=== PATIENT | female | born 2000 | race Two or more races ===

== ENCOUNTER 2023-03-03 16:48 | Emergency (ER) | payer MEDICAID ==
[~2023-03-03] VITALS: Ht 157.5 cm; Wt 86.2 kg
[2023-03-03 17:31] LABS: URINE HCG NEGATIVE (NEG)
[2023-03-03 17:46] LABS: BILIRUBIN,URINE NEGATIVE (Neg); CLARITY,URINE CLEAR (Clear); COLOR,URINE YELLOW (Yellow); GLUCOSE, URINE NEGATIVE (Neg); KETONES,URINE NEGATIVE (Neg); LEUKOCYTE ESTERASE ,URINE NEGATIVE (Neg); NITRITES, URINE NEGATIVE (Neg); OCCULT BLOOD,URINE SMALL (Neg); PROTEIN,URINE TRACE mg/dl (Neg); UROBILINOGEN,URINE 0.2 E.U/dL (0.2-1.0)
[2023-03-03 17:48] LABS: UA COLLECTION TYPE CLN CATCH MIDSTREAM
[2023-03-03 17:49] LABS: BACTERIA,URINE NONE SEEN /HPF (Neg); RBC,URINE 0-2 /HPF (0-2); SQUAMOUS EPITHELIAL CELL,UR FEW /LPF (FEW); WBC,URINE 0-4 /HPF (0-4)
[2023-03-03 18:23] LABS: ALANINE AMINOTRANSFERASE 27 U/L (12-78); ALBUMIN/GLOBULIN RATIO 0.7 (1.1-1.5); ALKALINE PHOSPHATASE 56 IU/L (46-116); ANION GAP 9 (8-16); ASPARTATE AMINO TRANSFERASE 19 U/L (10-37); BILIRUBIN,TOTAL 0.7 MG/DL (0.1-1.0); BLOOD UREA NITROGEN 10 MG/DL (7-18); BUN/CREATININE RATIO 12.2 (10.0-20.0); CALCIUM 10.1 MG/DL (8.5-10.1); CHLORIDE 103 MMOL/L (99-107); CREATININE 0.82 MG/DL (0.40-0.90); GLUCOSE 82 MG/DL (70-104); POTASSIUM 3.7 MMOL/L (3.5-5.1); SODIUM 137 MMOL/L (135-145); TOTAL CARBON DIOXIDE 25.1 MMOL/L (24-32); TOTAL PROTEIN 9.5 G/DL (6.4-8.2); eCRCL 86 ML/MIN; eGFR 88 ML/MIN
[2023-03-03 18:37] LABS: BASOPHILS # (AUTO) 0.1 X10'3 (0-0.2); EOSINOPHILS # (AUTO) 0.1 X10'3 (0-0.9); EOSINOPHILS % (AUTO) 0.8 % (0-6); HEMATOCRIT 45.4 % (35.0-45.0); HEMOGLOBIN 14.4 g/dl (12.0-16.0); LYMPHOCYTES # (AUTO) 2.1 X10'3 (1.1-4.8); LYMPHOCYTES % (AUTO) 29.8 % (21-51); MEAN CORPUSCULAR HEMOGLOBIN 22.5 PG (27.0-31.0); MEAN CORPUSCULAR HGB CONC 31.7 g/dL (33.0-36.5); MEAN CORPUSCULAR VOLUME 71.1 FL (78-98); MEAN PLATELET VOLUME 10.3 FL (7.4-10.4); MONOCYTES # (AUTO) 0.6 X10'3 (0-0.9); MONOCYTES % (AUTO) 8.3 % (2-12); NEUTROPHILS # (AUTO) 4.2 X10'3 (1.8-7.7); NEUTROPHILS % (AUTO) 59.1 % (42-75); PLATELET COUNT 284 X10'3 (140-440); RED BLOOD COUNT 6.38 X10'6 (4.20-5.60); RED CELL DISTRIBUTION WIDTH 16.4 % (11.5-14.5); WHITE BLOOD COUNT 7.2 X10'3 (4.5-11.0)
[2023-03-03 21:06] VITALS: BP 133/94; PULSE 98; TEMP 98.6; O2SAT 100
--- NOTE | 2023-03-03 21:13 | NUR ---
PCOS: GETS PERIOD EVERY OTHER MONTH HAD IT A FEW DAYS AGO. HER PERIOD LENGTHS VARY. THIS LAST ONE WAS 1 WEEK. LBM: THIS MORNING. SHE HAS BMS REGULARLY. YESTERDAY STOOLED X 3 AND DOESN'T FEEL CONSTIPATED.
--- NOTE | 2023-03-03 22:26 | NUR ---
pt drinking water, placed into a room and US will be here shortly.
--- NOTE | 2023-03-03 22:28 | NUR ---
pt changing into a gown and 2 warmed blankets given to her.
[2023-03-03] MEDS ORDERED: ondansetron/PF 4mg/2ml inj IV ONE (22:45)
[2023-03-03] MEDS ORDERED: normal saline 1000ML IV soln IVB ONE (22:45)
[2023-03-03] MEDS ORDERED: ketorolac tromethamine 15mg/ml inj. IV ONE (22:45)
[2023-03-03] MEDS ORDERED: iohexol 300mg/ml 100ml inj. ONE (22:50)
[2023-03-03 23:26] VITALS: RESP 18
== END 2023-03-04 00:33 | disposition home or self-care (01) ==
LOC: ER 16:48
DX: R10.31 Right lower quadrant pain (principal)
CPT/HCPCS: 36415; 74177; 76856; 80053; 81001; 81025; 83690; 85025; 93976; 99285; J1885; J2405; J7030; Q9967